=== PATIENT | male | born 1965 ===

== ENCOUNTER 2017-11-08 10:23 | Outpatient (CLI) | payer OTHER ==
[~2017-11-08] VITALS: Ht 152.4 cm; Wt 81.6 kg
[~2017-11-08 10:23] MED LIST: CEFTIN500 MG PO; FLONASE16 G1 NS; OMEPRAZOLE40 MG PO; ZANTAC300 MG PO; ZYRTEC10 MG PO
== END 2017-11-08 10:40 | disposition home or self-care (01) ==
LOC: OFIC 805 10:23
DX: J37.0 Chronic laryngitis (principal); R49.0 Dysphonia; K21.9 Gastro-esophageal reflux disease without esophagitis; J38.2 Nodules of vocal cords